=== PATIENT | male | born 1980 | race Caucasian/White ===

== ENCOUNTER 2025-02-25 19:00 | Emergency (ER) | payer OTHER, SELFPAY ==
[2025-02-25 19:04] VITALS: BP 118/83
[2025-02-25 21:16] VITALS: BMI 29.6
[2025-02-25] MEDS: ADACEL 0.5 ML IM (21:19)
[2025-02-25] MEDS: KEFLEX 500 MG PO (21:19)
--- NOTE | 2025-02-25 21:47 | ED.GENMED ---
History of Present Illness
General
Chief Complaint: Skin Surface Trauma
Source: patient
Exam Limitations: none
Time Seen by Provider: 02/25/25 20:50
Nursing documentation reviewed up to this point in time: agreed with
History of Present Illness
History of Present Illness:
44-year-old male with history as noted presents for evaluation of a puncture wound to his foot. Patient says that he was walking in his kitchen and accidentally stepped on a toothpick. He says he sustained a puncture wound to the foot that was
increasingly red and painful this evening which prompted ER visit. No other symptoms or complaints. Unsure of his last tetanus.
Past History
Past History
ED Past Medical History: GERD and Other (Kidney stones)
ED Past Surgical History: Urological
Patient has exhibited threatening behavior?: No
Social History
Tobacco: Non-smoker
Personal:
Living: with family
Employment: Employed
Family History
Family History: Other (Noncontributory)
Review of Systems
Review of Systems
All Other Systems: ROS reviewed and negative except as documented in HPI and ROS
Constitutional: Denies fever
Skin: Reports other (Pain, redness, swelling near puncture wound on the foot)
Phy Exam
Physical Exam
Physical Exam:
General: Well appearing and non-toxic
HEENT: protecting airway
Neck: appears supple
CV: No evidence of cyanosis
Resp: No accessory muscle use
Abd: Non-distended
Extremities: No deformities
Neuro: Alert
Psych: Normal affect
Skin: Patient has a small puncture wound on the sole of the right foot essentially at the base of the third toe with some surrounding erythema and tenderness but no visible foreign body
Scores
Heart Failure Risk
Heart Failure Risk Score: Not Applicable
Heart Score for Chest Pain Patients
STEMI patient?: Not applicable
Withdrawal Assessment of Alcohol
Withdrawal Assessment Completed?: Not applicable
Course
Orders/Labs/Results
Orders:
Orders
02/25/25 20:49
CR Foot - Right 2 Views Urgent
Comment:
Reason For Exam: puncture to sole--eval for FB
02/25/25 20:59
Cephalexin Monohydrate [Keflex] 500 mg PO NOW STA
Tetanus/Diphth/Acelpertussis [Adacel] 0.5 ml IM .ONCE ONE
Vital Signs
Initial and Last Documented VS:
Initial Vital Signs
Temp Pulse Resp BP Pulse Ox
36.7 C 78 16 118/83 98
02/25/25 19:04 02/25/25 19:04 02/25/25 19:04 02/25/25 19:04 02/25/25 19:04
Last Documented Vital Signs
Temp Pulse Resp BP Pulse Ox
36.7 C 78 16 118/83 98
02/25/25 19:04 02/25/25 19:04 02/25/25 19:04 02/25/25 19:04 02/25/25 19:04
MDM/Problems Addressed
Differential Diagnosis Includes:
Cellulitis, retained foreign body, puncture wound
MDM/Problems Addressed:
44-year-old male presents with pain, redness, swelling near puncture wound on his foot from earlier today. Vitals and exam as above. Check x-ray to evaluate for any signs of retained foreign body. Will start antibiotics, update tetanus.
X-ray reviewed�there is a visible tract near puncture wound but explored at bedside extensively with no foreign body noted. Stable for discharge on oral antibiotic. Spoke about return precautions all questions answered.
*Radiology
Radiology exam reviewed: preliminary read by ED provider
*Pulse Oximetry
SaO2: 98
Oxygen Mode of Delivery: Room air
Patient hypoxic: no (98%)
*Critical Care Note
Total Time (30-74mins, 75-104mins- exclusive of procedures): Not Applicable
Data Reviewed
Source: patient
ED Attending Note
-
Portions of this chart may have been created with voice recognition software.� Occasional wrong word or��sound alike� substitutions may have occurred due to the inherent limitations of voice recognition software.
Discharge Plan
Departure
Patient Disposition: Home (Routine Discharge)
Date of Disposition: 02/25/25
Time of Disposition: 22:08
Patient with high blood pressure during this ER visit?: No
Discharge Problem:
Puncture wound of foot
Instructions: Wound Care (DC)
Prescriptions:
New
cephalexin 500 mg capsule
500 mg PO QID 7 Days Qty: 28 0RF
No Action
omeprazole magnesium [Prilosec OTC] 20 MG tablet,delayed release (DR/EC)
20 mg PO DAILY
phenazopyridine 200 MG tablet
200 mg PO TIDPRN PRN (Reason: urinary burning) Qty: 21 0RF
Referrals:
NONE,* [Family Provider, Internal Medicine]
Activity Restrictions/Additional Instructions:
Please return if you notice increased redness, swelling, pain or any other concerning symptoms, or if your symptoms or not improving after a few days of antibiotics.
Thank you for visiting the Emergency Department at [facility].
1. Please schedule a follow up appointment as directed. Call first thing tomorrow morning to make an appointment.
2. If indicated, please take your medications as instructed and indicated on discharge paperwork.
3. If any of your symptoms do not improve, or persist, or become more severe within 6-12 hours, please return to the emergency department for further care.
4. Please return to the emergency department if you develop a headache, neck pain/stiffness, fever greater than 100.4F, chest pain, shortness of breath, persistent nausea, vomiting, slurred speech, difficulty walking, numbness/tingling, weakness,
signs of infection or any other symptoms that are worrisome to you.
Please call [phone] if you have any questions.
Interventions
Interventions:
*Risk Screen - Suicide Last Done: 02/25/25 21:16
*General Assessment Last Done: 02/25/25 21:16
*Neglect/Abuse Screening Last Done: 02/25/25 21:16
*ED- Fall Risk Assessment Last Done: 02/25/25 21:16
*ED COVID-19 Vaccine History Last Done: 02/25/25 21:16
*ED Influenza Vaccine History Last Done: 02/25/25 21:16
Discharge Date and Time
Print Language: LAO
== END 2025-02-25 22:14 | disposition home or self-care (01) ==
LOC: EMR 19:00
PROVIDERS: EMERGENCY PHYSICIAN Emergency Medicine
DX: S91.331A Puncture wound without foreign body, right foot, initial encounter (principal); Z23 Encounter for immunization; W22.8XXA Striking against or struck by other objects, initial encounter; Y93.01 Activity, walking, marching and hiking; Y92.000 Kitchen of unspecified non-institutional (private) residence as the place of occurrence of the external cause
CPT/HCPCS: 99283; 90471; 73620; 90715